=== PATIENT | female | born 1990 | race African-American/Black ===

== ENCOUNTER 2019-07-29 13:09 | Emergency (ER) | payer OTHER, SELFPAY ==
[~2019-07-29] VITALS: Ht 162.6 cm; Wt 70.0 kg
[2019-07-29] MEDS ORDERED: SODIUM CHLORIDE 0.9% 1,000 ML IV ONE (13:49)
[2019-07-29] MEDS ORDERED: HALOPERIDOL LACTATE 5MG/ML VIAL IM STA (13:49)
[2019-07-29] MEDS ORDERED: DIPHENHYDRAMINE 50MG/ML VIAL IM STA (13:49)
[2019-07-29] MEDS ORDERED: LORAZEPAM 2MG/ML CPJ IM ONE (14:00)
[2019-07-29 14:31] LABS: BASOPHILS % 0.3 % (0.0-2.0); EOSINOPHILS % 1.3 % (0.0-5.0); HEMATOCRIT. 34.8 % (36.0-48.0); HEMOGLOBIN. 11.7 g/dL (12.0-16.0); LYMPHOCYTES % 27.5 % (20.0-50.0); MEAN CORPUSCULAR HEMOGLOBIN 29.6 pg (28.0-32.0); MEAN CORPUSCULAR VOLUME 88.1 fL (81.0-99.0); MEAN PLATELET VOLUME 6.5 fl (7.4-10.4); MONOCYTES % 8.8 % (2.0-8.0); NEUTROPHILS % 62.1 % (40.0-76.0); PLATELET 237 x1000/uL (130-400); RED BLOOD CELL COUNT 3.95 mill/uL (4.2-5.4); RED CELL DISTRIBUTION WIDTH 13.2 % (11.6-14.6)
[2019-07-29 14:38] LABS: CHLORIDE 104 mEq/L (98-107)
[2019-07-29 14:42] LABS: ETHANOL BLOOD < 10 mg/dL; HCG SCREEN NEGATIVE
[2019-07-29 15:40] LABS: CLARITY URINE CLEAR (CLEAR); COLOR URINE YELLOW (YELLOW); KETONES URINE NEGATIVE (NEGATIVE); LEUKOCYTE ESTERASE URINE NEGATIVE (NEGATIVE); NITRITE URINE NEGATIVE (NEGATIVE); OCCULT BLOOD URINE NEGATIVE (NEGATIVE); PH URINE 7.5 (4.5-8.0); PROTEIN URINE NEGATIVE (NEGATIVE); SPECIFIC GRAVITY URINE 1.007 (1.005-1.030)
[2019-07-29 15:57] LABS: *BARBITURATES SCREEN URINE NEGATIVE (NEGATIVE); *BENZODIAZEPINES SCREEN URINE NEGATIVE (NEGATIVE); *COCAINE SCREEN URINE NEGATIVE (NEGATIVE); CANNABINOID URINE SCREEN NEGATIVE (NEGATIVE); METHADONE URINE SCREEN NEGATIVE (NEGATIVE); OPIATES URINE SCREEN NEGATIVE (NEGATIVE); PHENCYCLIDINE URINE SCREEN NEGATIVE (NEGATIVE)
[2019-07-29 16:08] LABS: *AMPHETAMINES SCREEN URINE PRESUMTIVE POSITIVE (NEGATIVE)
[2019-07-29 18:00] VITALS: BP 145/82
== END 2019-07-29 18:32 | disposition home or self-care (01) ==
LOC: ER 13:09
DX: F15.10 Other stimulant abuse, uncomplicated (principal); R41.82 Altered mental status, unspecified
CPT/HCPCS: 36415; 70450; 80053; 80305; 80307; 80320; 80329; 81003; 81025; 83605; 84443; 84703; 85025; 93005; 96360; 96361; 99284; J7030; G0480

== ENCOUNTER 2019-07-30 08:00 | Emergency (ER) | payer OTHER, SELFPAY ==
[~2019-07-30] VITALS: Ht 165.1 cm; Wt 75.0 kg
[2019-07-30] MEDS ORDERED: OLANZAPINE 10 MG/VIAL IM STA (08:22)
[2019-07-30] MEDS ORDERED: LORAZEPAM 2MG/ML CPJ IM STA (08:22)
[2019-07-30 08:59] LABS: BASOPHILS % 0.4 % (0.0-2.0); EOSINOPHILS % 1.2 % (0.0-5.0); HEMATOCRIT. 34.9 % (36.0-48.0); HEMOGLOBIN. 11.7 g/dL (12.0-16.0); LYMPHOCYTES % 34.4 % (20.0-50.0); MEAN CORPUSCULAR VOLUME 89.1 fL (81.0-99.0); MEAN PLATELET VOLUME 6.3 fl (7.4-10.4); MONOCYTES % 8.3 % (2.0-8.0); NEUTROPHILS % 55.7 % (40.0-76.0); PLATELET 230 x1000/uL (130-400); RED BLOOD CELL COUNT 3.91 mill/uL (4.2-5.4); RED CELL DISTRIBUTION WIDTH 13.2 % (11.6-14.6)
[2019-07-30 09:08] LABS: CHLORIDE 110 mEq/L (98-107)
[2019-07-30 09:13] LABS: ETHANOL BLOOD < 10 mg/dL
[2019-07-30 15:18] LABS: CLARITY URINE CLEAR (CLEAR); COLOR URINE YELLOW (YELLOW); KETONES URINE NEGATIVE (NEGATIVE); LEUKOCYTE ESTERASE URINE NEGATIVE (NEGATIVE); NITRITE URINE NEGATIVE (NEGATIVE); OCCULT BLOOD URINE NEGATIVE (NEGATIVE); PH URINE 5.5 (4.5-8.0); PROTEIN URINE NEGATIVE (NEGATIVE); UROBILINOGEN URINE 0.2 E.U./dL (0.2-1.0)
[2019-07-30 16:16] LABS: *BARBITURATES SCREEN URINE NEGATIVE (NEGATIVE); *BENZODIAZEPINES SCREEN URINE NEGATIVE (NEGATIVE); *COCAINE SCREEN URINE NEGATIVE (NEGATIVE); METHADONE URINE SCREEN NEGATIVE (NEGATIVE); OPIATES URINE SCREEN NEGATIVE (NEGATIVE); PHENCYCLIDINE URINE SCREEN NEGATIVE (NEGATIVE)
[2019-07-30 16:17] LABS: CANNABINOID URINE SCREEN NEGATIVE (NEGATIVE)
[2019-07-30 16:19] LABS: *AMPHETAMINES SCREEN URINE PRESUMTIVE POSITIVE (NEGATIVE)
[2019-07-31 08:10] VITALS: BP 137/90
== END 2019-07-31 10:35 | disposition home or self-care (01) ==
LOC: ER 08:00
DX: F29 Unspecified psychosis not due to a substance or known physiological condition (principal); Z59.0 Homelessness
CPT/HCPCS: 36415; 80053; 80305; 80320; 81003; 85025; 96372; 99284; J2060; J3490; Z7610; G0480

== ENCOUNTER 2019-08-11 15:20 | Emergency (ER) | payer SELFPAY ==
[~2019-08-11] VITALS: Ht 157.5 cm; Wt 64.0 kg
[2019-08-11] MEDS ORDERED: LORAZEPAM 2MG/ML CPJ IV STA (17:29)
[2019-08-11] MEDS ORDERED: SODIUM CHLORIDE 0.9% 1,000 ML IV ONE (17:29)
[2019-08-11 17:51] LABS: BASOPHILS % 0.3 % (0.0-2.0); EOSINOPHILS % 0.3 % (0.0-5.0); HEMATOCRIT. 36.2 % (36.0-48.0); HEMOGLOBIN. 12.2 g/dL (12.0-16.0); MEAN CORPUSCULAR HEMOGLOBIN 29.5 pg (28.0-32.0); MEAN CORPUSCULAR VOLUME 87.6 fL (81.0-99.0); MEAN PLATELET VOLUME 6.4 fl (7.4-10.4); MONOCYTES % 6.3 % (2.0-8.0); NEUTROPHILS % 61.1 % (40.0-76.0); PLATELET 257 x1000/uL (130-400); RED BLOOD CELL COUNT 4.14 mill/uL (4.2-5.4)
[2019-08-11 18:05] LABS: CHLORIDE 108 mEq/L (98-107)
[2019-08-11 18:10] LABS: ETHANOL BLOOD < 10 mg/dL
[2019-08-11 18:15] LABS: HCG SCREEN NEGATIVE
[2019-08-11 19:35] LABS: CLARITY URINE CLEAR (CLEAR); COLOR URINE YELLOW (YELLOW); KETONES URINE NEGATIVE (NEGATIVE); LEUKOCYTE ESTERASE URINE NEGATIVE (NEGATIVE); NITRITE URINE NEGATIVE (NEGATIVE); OCCULT BLOOD URINE NEGATIVE (NEGATIVE); PROTEIN URINE NEGATIVE (NEGATIVE); SPECIFIC GRAVITY URINE 1.003 (1.005-1.030); UROBILINOGEN URINE 0.2 E.U./dL (0.2-1.0)
[2019-08-11 19:45] LABS: *COCAINE SCREEN URINE NEGATIVE (NEGATIVE)
[2019-08-11 19:46] LABS: *BENZODIAZEPINES SCREEN URINE NEGATIVE (NEGATIVE); CANNABINOID URINE SCREEN NEGATIVE (NEGATIVE); METHADONE URINE SCREEN NEGATIVE (NEGATIVE); OPIATES URINE SCREEN NEGATIVE (NEGATIVE); PHENCYCLIDINE URINE SCREEN NEGATIVE (NEGATIVE)
[2019-08-11 19:48] LABS: *BARBITURATES SCREEN URINE NEGATIVE (NEGATIVE)
[2019-08-11 19:50] LABS: *AMPHETAMINES SCREEN URINE PRESUMTIVE POSITIVE (NEGATIVE)
[2019-08-12 08:32] VITALS: BP 109/76
== END 2019-08-12 08:35 | disposition home or self-care (01) ==
LOC: ER 15:20
DX: F15.10 Other stimulant abuse, uncomplicated (principal); F20.9 Schizophrenia, unspecified; F32.9 Major depressive disorder, single episode, unspecified; Z59.0 Homelessness
CPT/HCPCS: 36415; 80053; 80305; 80320; 81003; 81025; 84703; 85025; 96374; 99284; J2060; J7030; Z7610; G0480

== ENCOUNTER 2019-08-14 10:25 | Emergency (ER) | payer SELFPAY ==
[~2019-08-14] VITALS: Ht 165.1 cm; Wt 70.0 kg
[2019-08-14] MEDS ORDERED: OLANZAPINE 10 MG/VIAL IM STA (10:50)
[2019-08-14] MEDS ORDERED: DIPHENHYDRAMINE 50MG/ML VIAL IM STA (10:50)
[2019-08-14] MEDS ORDERED: LORAZEPAM 2MG/ML CPJ IM STA (10:50)
[2019-08-14 12:24] LABS: CHLORIDE 107 mEq/L (98-107)
[2019-08-14 12:27] LABS: ETHANOL BLOOD < 10 mg/dL
[2019-08-14 12:43] LABS: BASOPHILS % 0.3 % (0.0-2.0); EOSINOPHILS % 0.9 % (0.0-5.0); HEMATOCRIT. 37.8 % (36.0-48.0); HEMOGLOBIN. 12.7 g/dL (12.0-16.0); LYMPHOCYTES % 21.3 % (20.0-50.0); MEAN CORPUSCULAR HEMOGLOBIN 29.5 pg (28.0-32.0); MEAN CORPUSCULAR VOLUME 87.8 fL (81.0-99.0); MEAN PLATELET VOLUME 6.6 fl (7.4-10.4); MONOCYTES % 8.1 % (2.0-8.0); NEUTROPHILS % 69.4 % (40.0-76.0); PLATELET 227 x1000/uL (130-400); RED BLOOD CELL COUNT 4.31 mill/uL (4.2-5.4)
[2019-08-14 13:10] LABS: CLARITY URINE CLEAR (CLEAR); COLOR URINE YELLOW (YELLOW); KETONES URINE NEGATIVE (NEGATIVE); LEUKOCYTE ESTERASE URINE NEGATIVE (NEGATIVE); NITRITE URINE NEGATIVE (NEGATIVE); OCCULT BLOOD URINE NEGATIVE (NEGATIVE); PH URINE 5.5 (4.5-8.0); PROTEIN URINE NEGATIVE (NEGATIVE); SPECIFIC GRAVITY URINE 1.003 (1.005-1.030); UROBILINOGEN URINE 0.2 E.U./dL (0.2-1.0)
[2019-08-14 13:54] LABS: *BARBITURATES SCREEN URINE NEGATIVE (NEGATIVE); *BENZODIAZEPINES SCREEN URINE NEGATIVE (NEGATIVE)
[2019-08-14 13:55] LABS: *COCAINE SCREEN URINE NEGATIVE (NEGATIVE); CANNABINOID URINE SCREEN NEGATIVE (NEGATIVE); OPIATES URINE SCREEN NEGATIVE (NEGATIVE); PHENCYCLIDINE URINE SCREEN NEGATIVE (NEGATIVE)
[2019-08-14 13:57] LABS: METHADONE URINE SCREEN NEGATIVE (NEGATIVE)
[2019-08-14 14:58] LABS: *AMPHETAMINES SCREEN URINE PRESUMTIVE POSITIVE (NEGATIVE)
[2019-08-14] MEDS: RISPERIDONE 1MG TABLET PO SCH (19:01)
[2019-08-14] MEDS ORDERED: SODIUM CHLORIDE 0.9% 1,000 ML IV ONE (19:46)
[2019-08-15] MEDS ORDERED: SODIUM CHLORIDE 0.9% 1,000 ML IV ONE (00:29)
[2019-08-15] MEDS: RISPERIDONE 1MG TABLET PO SCH ×2 (09:52→18:38)
[2019-08-16] MEDS: RISPERIDONE 1MG TABLET PO SCH ×2 (08:49→17:36)
[2019-08-16 20:41] VITALS: BP 104/71
== END 2019-08-16 20:50 | disposition home or self-care (01) ==
LOC: ER 10:25
DX: F15.10 Other stimulant abuse, uncomplicated (principal); R45.851 Suicidal ideations; F79 Unspecified intellectual disabilities
CPT/HCPCS: 36415; 80053; 80305; 80307; 80320; 80329; 81003; 82962; 85025; 96372; 99284; J1200; J2060; J3490; J7030; Z7610; G0480